=== PATIENT | male | born 1965 | race Caucasian/White ===

== ENCOUNTER 2024-07-24 16:45 | Emergency (ER) | payer SELFPAY ==
[2024-07-24 16:48] VITALS: BP 133/76; PULSE 64; TEMP 36.6; O2SAT 100; BMI 26.8
--- NOTE | 2024-07-24 17:18 | XRR_ITS ---
PROCEDURE INFORMATION: Exam: XR Abdomen Exam date and time: 07/24/2024 5:28 PM Age: 59 years old Clinical indication: Abdominal pain; Acute; Additional info: Diffuse abd pain x2 weeks TECHNIQUE: Imaging protocol: Radiologic exam of the abdomen. Views: Frontal supine view of the abdomen. 1 View. COMPARISON: No relevant prior studies available. FINDINGS: Gastrointestinal tract: Nonobstructive bowel gas pattern. Large colonic stool burden. Bones/joints: No acute osseous abnormality. XR/XR KUB portable [id number] IMPRESSION: 1. Nonobstructive bowel gas pattern. 2. Large colonic stool burden, which may be seen with constipation.
[2024-07-24 17:25] VITALS: BP 128/84; PULSE 58; O2SAT 100
--- NOTE | 2024-07-24 17:29 | ED_ITS ---
HPI - Abdominal Pain 2 General: Chief Complaint: Abdominal Pain Stated Complaint: dr campos, abd pain Time Seen by Provider: 07/24/24 17:06 Source: patient Mode of arrival: ambulatory Limitations: no limitations History of Present Illness: Patient is a 59-year-old male who presents the emergency department complaining of diffuse abdominal pain for the past 2 weeks. He states the pain started in the bilateral upper quadrants but has since moved to his entire abdomen as well as to his back/kidney region. He was seen by primary care but was referred over to the ED for labs and potential CT imaging. He states that the pain has been constant, and feels like a compacted feeling. He does note that he thought it was constipation early on but has taken stool softeners for this, this did not help the pain. Also notes his last normal bowel movement was this morning and was normal. He currently is rating his pain 7/10, he has not taken anything for the pain. He does have a history of appendectomy, still has his gallbladder. Specifically he notes that the pain is worsened when he eats anything, and is relieved with lying supine or seated up. Right now he is not reporting any associated nausea or vomiting, no diarrhea, no hematochezia or melena, no chest pain or shortness of breath, no dysuria or hematuria. He does note that occasionally he will get a burning sensation to the epigastric region that he thinks is heartburn but has not tried any medications. Currently at this time his vitals are within normal limits. MD elicited complaint: abdominal pain Onset (ago): week(s) (2) Pain Consistency: constant Location: Diffuse Severity: moderate Pain scale (0-10): 7 Quality: other ( Compacted feeling ) Radiation: back Exacerbating factors: eating Relieving factors: other (Lying supine or seated up) Associated Symptoms: Denies bloating, change in stool character, chills, constipation, diarrhea, dysuria, fever(s), hematochezia, hematuria, nausea and vomiting Related Data Allergies Allergy/AdvReac Type Severity Reaction Status Date / Time No Known Allergies Allergy Verified 07/24/24 16:55 Review of Systems 2 General: Reports: 10 or more systems reviewed and unremarkable except in HPI and below Const: Denies: fever(s), chills, change in appetite, change in weight or diaphoresis ENMT: Denies: throat pain or hoarseness Card: Denies: chest pain, palpitations or lightheadedness Resp: Denies: dyspnea, productive cough or wheezing GI: Reports: abdominal pain; Denies: nausea, vomiting, diarrhea, constipation, bloating, change in stool character or hematochezia : Denies: flank pain, difficulty urinating, dysuria, urinary frequency, urinary urgency or hematuria Musc: Reports: back pain; Denies: neck pain Skin/Breast: Denies: rash or new lesions Neuro: Denies: headache(s) or dizziness Physical Exam 2 Const: COMMON NORMALS: no acute distress, average body habitus, patient oriented x3, no limitations, healthy appearing, alert and well nourished G ENERAL APPEARANCE: cooperative, comfortable and anxious O RIENTATION/CONSCIOUSNESS: Yes awake HENMT: COMMON NORMALS: normocephalic, atraumatic, hearing grossly normal bilaterally, external ears normal, Normal external nose present, Normal nasal mucous membranes and turbinates present and moist oral mucous membranes HEAD & SCALP: normocephalic and atraumatic NOSE: Normal external nose present and Normal nasal mucous membranes and turbinates present EXTERNAL EAR: Yes external ears normal Eye: COMMON NORMALS: Equal, round and reactive pupils present, EOMs intact bilaterally, conjunctivae normal and normal visual marte by confrontation C ONJUNCTIVA: Yes conjunctivae normal PUPIL: Yes Equal, round and reactive pupils present Neck/C-Spine: COMMON NORMALS: full ROM, supple, no meningeal signs and no JVD Resp: COMMON NORMALS: normal respiratory effort, No retractions, No use of accessory muscles and clear to auscultation bilaterally AUSCULTATION: clear to auscultation bilaterally, no crackles, no rales, no rhonchi and no wheezes Cardio: COMMON NORMALS: no JVD, regular rate, regular rhythm, S1 normal heart sound present, S2 normal heart sound present, No gallops present (Cardio), No clicks present (Cardio), No murmurs present (Cardio), No rub (Cardio) and Peripheral pulses 2+ throughout RATE: regular rate RHYTHM: regular rhythm HEART SOUNDS: S1 normal heart sound present and S2 normal heart sound present PERIPHERAL PULSES: Peripheral pulses 2+ throughout GI: COMMON NORMALS: Normal to inspection, nondistended, normoactive bowel sounds present, Soft to palpation, No hepatosplenomegaly present and no masses AUSCULTATION: Yes normoactive bowel sounds PALPATION: Yes Soft to palpation, Yes Tenderness to palpation present (GI) (Diffuse abdominal tenderness to light palpation), No Guarding due to palpation present (GI), No Rigid due to palpation and Yes No hepatosplenomegaly present RECTAL EXAM: Yes deferred OTHER: Negative Rivas sign : COMMON NORMALS: Yes no CVA tenderness BLADDER/KIDNEY EXAM: Yes no CVA tenderness Back/Pelvis: COMMON NORMALS: no CVA tenderness Extremity: COMMON NORMALS: normal to inspection and full ROM Neuro: COMMON NORMALS: patient oriented x3, moves all extremities, no focal motor deficits and no sensory deficits noted SENSORIUM/ORIENTATION: Yes alert MENINGEAL SIGNS: Yes no meningeal signs Psych: COMMON NORMALS: mental status grossly normal, cooperative and speech normal SPEECH: Yes normal speech Skin: COMMON NORMALS: no rashes or lesions noted GENERAL SKIN EXAM: no rashes or lesions noted Course 2 Vital Signs: Vital signs: Vital Signs Temperature 97.9 F 07/24/24 16:48 Pulse Rate 73 07/24/24 19:30 Blood Pressure 139/92 07/24/24 19:30 Pulse Oximetry 95 07/24/24 19:30 Oxygen Delivery Me thod Room Air 07/24/24 19:30 MDM - Abdominal Pain Medical Decision Making This patient presented with abdominal pain for the past 2 weeks, was sent by PCP for lab work and imaging. He was diffusely tender on palpation. Vitals have been normal throughout ED stay. Initially lab work was obtained which all was negative, to include a normal urinalysis. KUB showed large stool burden, I suspect constipation as cause of his pain. When discussing this with the patient, he states he would rather be safe and get a CT now that he has an IV in as opposed to coming back when he gets worse. CT showed nonspecific enteritis, likely viral due to normal labs and clinical stability. Discussed conservative therapy to include treatment of his constipation, bowel rest, bland diet, and close observation and make sure that he is getting better. No need for antibiotics or further treatment/workup at this time, rechecked and he is stating he is feeling better and ready to go home. Discussed return precautions, he verbalized understanding. Lab Data 07/24/24 17:45 07/24/24 17:45 Labs/Radiology: Radiology Impressions KUB X-Ray 07/24/24 17:18 IMPRESSION: 1. Nonobstructive bowel gas pattern. 2. Large colonic stool burden, which may be seen with constipation. Abdomen/Pelvis CT 07/24/24 18:21 IMPRESSION: Multiple nondilated fluid-filled loops of small bowel, nonspecific findings but may be seen with enteritis. No small bowel obstruction. Laboratory Results WBC 9.45 10^3/uL (3.29-11.43) 07/24/24 17:45 RBC 4.52 10^6/uL (3.85-5.65) 07/24/24 17:45 Hgb 13.00 g/dL (11.27-16.99) 07/24/24 17:45 Hct 40.1 % (37-53) 07/24/24 17:45 MCV 88.7 fl (82-101) 07/24/24 17:45 MCH 28.8 pg (27-33) 07/24/24 17:45 MCHC 32.4 g/dL (30-55) 07/24/24 17:45 RDW 13.2 % (12.1-15.1) 07/24/24 17:45 Plt Count 241 10^3/cmm (157-399) 07/24/24 17:45 MPV 8.9 fL (7.4-10.4) 07/24/24 17:45 Neut % (Auto) 57.7 % 07/24/24 17:45 Lymph % (Auto) 30.7 % 07/24/24 17:45 [place] % (Auto) 9.4 % 07/24/24 17:45 Eos % (Auto) 1.7 % 07/24/24 17:45 Baso % (Auto) 0.3 % 07/24/24 17:45 Neut # (Auto) 5.45 10^3/uL (1.8-7.7) 07/24/24 17:45 Lymph # (Auto) 2.9 10^3/uL (0.8-4.8) 07/24/24 17:45 [place] # (Auto) 0.9 10^3/uL (0.2-0.9) 07/24/24 17:45 Eos # (Auto) 0.2 10^3/uL (0.0-0.8) 07/24/24 17:45 Baso # (Auto) 0.0 10^3/uL (0.0-0.1) 07/24/24 17:45 Nucleated RBC % (auto) 0 % 07/24/24 17:45 Nucleated RBCs # 0.0 /100WBC 07/24/24 17:45 Sodium 141 mmol/L (136-145) 07/24/24 17:45 Potassium 3.6 mmol/L (3.5-5.1) 07/24/24 17:45 Chloride 103 mmol/L (98-107) 07/24/24 17:45 Carbon Dioxide 26 mmol/L (22-29) 07/24/24 17:45 Anion Gap 15.6 (5-19) 07/24/24 17:45 BUN 14 mg/dL (6-20) 07/24/24 17:45 Creatinine 0.9 mg/dL (0.7-1.2) 07/24/24 17:45 GFR Calculation 87.0 mL/min (90-130) L 07/24/24 17:45 Glucose 84 mg/dL (65-115) 07/24/24 17:45 Calculated Osmolality 292 mOsm/kg (285-295) 07/24/24 17:45 Calcium 9.4 mg/dL (8.5-10.5) 07/24/24 17:45 Total Bilirubin 0.2 mg/dL (0.15-1.2) 07/24/24 17:45 AST 16 U/L (0-40) 07/24/24 17:45 ALT 13 U/L (0-41) 07/24/24 17:45 Alkaline Phosphatase 108 U/L (40-130) 07/24/24 17:45 Total Protein 7.1 g/dL (6.6-8.7) 07/24/24 17:45 Albumin 4.3 g/dL (3.5-5.2) 07/24/24 17:45 Globulin 2.8 g/dL (1.3-4.6) 07/24/24 17:45 Lipase 35 U/L (13-60) 07/24/24 17:45 Urine Color Yellow (Yellow) 07/24/24 17:24 Urine Appearance Clear (CLEAR) 07/24/24 17:24 Urine pH 6.5 (5-7) 07/24/24 17:24 Ur Specific [place] 1.024 (1.005-1.030) 07/24/24 17:24 Urine Protein Negative (Negative) 07/24/24 17:24 Urine Glucose (UA) Negative (Normal) 07/24/24 17:24 Urine Ketones Trace (Negative) 07/24/24 17:24 Urine Blood Negative (Negative) 07/24/24 17:24 Urine Nitrate Negative (Negative) 07/24/24 17:24 Urine Bilirubin Negative (Negative) 07/24/24 17:24 Urine Urobilinogen 1.0 mg/dL (Negative) 07/24/24 17:24 Ur Leukocyte Esterase Negative (Negative) 07/24/24 17:24 Urine RBC 0-2 /hpf (0-2) 07/24/24 17:24 Urine WBC 6-10 /hpf (0-5) 07/24/24 17:24 Ur Squamous Epith Cells 0-5 /hpf (0-5) 07/24/24 17:24 Amorphous Sediment Not Reportable 07/24/24 17:24 Urine Bacteria None seen /hpf (NONE) 07/24/24 17:24 Hyaline Casts 4.11 /lpf 07/24/24 17:24 All radiology interpretation(s) finalized by discharge Discharge Plan Discharge Patient Disposition: Home Clinical Impression: Gastroenteritis Constipation Qualifiers: Constipation type: unspecified constipation type Qualified Code(s): K59.00 - Constipation, unspecified Condition: Stable Discharge Orders: Discharge ED (Routine); Ordered 07/24/24 Ordered By: David Medeiros Referrals: Raj Cornelius MD [Primary Care Provider] - Patient Instructions: [place] Diet - Adult, Constipation (ED), Gastroenteritis (ED) Activity Restrictions/Additional Instructions: Bowel rest. Drink plenty of fluids. [place] diet. Take medications at home for your constipation, and take MiraLAX as maintenance therapy. High-fiber diet. Follow-up with primary care. Return with any new or worsening. Please see the attached patient instructions for further education. Print Language: Polish Coding Level of Care Code ED Gum Sprayer for Guanako Mistry
[2024-07-24 17:43] LABS: Bilirubin Urine Negative (Negative); Blood Urine Negative (Negative); Glucose Urine UA Negative (Normal); Ketones Urine Trace (Negative); Leukocyte Esterase Urine Negative (Negative); Nitrate Urine Negative (Negative); Protein Urine Negative (Negative); Specific Gravity, Urine 1.024 (1.005-1.030); Urine Appearance Clear (CLEAR); Urine Color Yellow (Yellow); pH Urine 6.5 (5-7)
[2024-07-24 17:48] LABS: Add Urine Microscopic? YES; Bacteria Urine None Seen /hpf; Hyaline Casts Urine 4.11 /lpf; RBC Urine 0-2 /hpf (0-2); Squamous Epithelial Cell Urine 0-5 /hpf (0-5)
[2024-07-24 17:52] VITALS: BP 126/75; PULSE 58; O2SAT 100
[2024-07-24 17:54] LABS: Basophils % 0.3 %; Eosinophils # 0.2 10^3/uL (0.0-0.8); Eosinophils % 1.7 %; Hematocrit 40.1 % (37-53); Lymphocytes # 2.9 10^3/uL (0.8-4.8); Lymphocytes % 30.7 %; Mean Corpuscular HGB Conc 32.4 g/dL (30-55); Mean Corpuscular Hemoglobin 28.8 pg (27-33); Mean Corpuscular Volume 88.7 fl (82-101); Mean Platelet Volume 8.9 fL (7.4-10.4); Monocytes # 0.9 10^3/uL (0.2-0.9); Monocytes % 9.4 %; Neutrophils # 5.45 10^3/uL (1.8-7.7); Neutrophils % 57.7 %; Nucleated Red Blood Cells % 0 %; Platelet Count 241 10^3/cmm (157-399); Red Blood Count 4.52 10^6/uL (3.85-5.65); Red Cell Distribution Width 13.2 % (12.1-15.1); White Blood Count 9.45 10^3/uL (3.29-11.43)
[2024-07-24 18:14] LABS: Alanine Aminotransferase 13 U/L (0-41); Albumin Level 4.3 g/dL (3.5-5.2); Alkaline Phosphatase 108 U/L (40-130); Anion Gap 15.6 (5-19); Aspartate Amino Transferase 16 U/L (0-40); Blood Urea Nitrogen 14 mg/dL (6-20); Calcium 9.4 mg/dL (8.5-10.5); Carbon Dioxide 26 mmol/L (22-29); Chloride 103 mmol/L (98-107); Creatinine Clr Calc Pharmacy 111.7431; Globulin 2.8 g/dL (1.3-4.6); Glucose 84 mg/dL (65-115); Lipase 35 U/L (13-60); Osmolality Calculated 292 mOsm/kg (285-295); Potassium 3.6 mmol/L (3.5-5.1); Sodium 141 mmol/L (136-145); Total Bilirubin 0.2 mg/dL (0.15-1.2); Total Protein 7.1 g/dL (6.6-8.7)
--- NOTE | 2024-07-24 18:21 | CTR_ITS ---
PROCEDURE INFORMATION: Exam: CT Abdomen And Pelvis With Contrast Exam date and time: 07/24/2024 7:39 PM Age: 59 years old Clinical indication: Abdominal pain; Generalized; Additional info: Diffuse abd pain x2 weeks TECHNIQUE: Imaging protocol: Computed tomography of the abdomen and pelvis with contrast. Radiation optimization: All CT scans at this facility use at least one of these dose optimization techniques: automated exposure control; mA and/or kV adjustment per patient size (includes targeted exams where dose is matched to clinical indication); or iterative reconstruction. Contrast material: OMNIPAQUE 350; Contrast volume: 100 ml; Contrast route: INTRAVENOUS (IV); COMPARISON: CR (ABDOMEN, ) 07/24/2024 5:28 PM RADIATION DOSE METRICS: Total DLP (mGy-cm): 618.03 FINDINGS: Lungs: Unremarkable. Liver: Normal. No mass. Gallbladder and biliary ducts: Normal. No calcified stones. No ductal dilation. Pancreas: Normal. No ductal dilation. Spleen: Punctate calcified granulomas within the spleen. Adrenal glands: Normal. No mass. Kidneys and ureters: Normal. No hydronephrosis. Stomach and bowel: Moderate colonic stool burden. Multiple nondilated fluid-filled loops of small bowel. Appendix: No evidence of appendicitis. Intraperitoneal space: Unremarkable. No free air. No significant fluid collection. Vasculature: Unremarkable. No abdominal aortic aneurysm. Lymph nodes: Unremarkable. No enlarged lymph nodes. Urinary bladder: Unremarkable as visualized. Reproductive: Unremarkable as visualized. Bones/joints: Unremarkable. No acute fracture. Soft tissues: Small fat containing bilateral inguinal hernias. CT/CT abdomen pelvis w con* [id number] IMPRESSION: Multiple nondilated fluid-filled loops of small bowel, nonspecific findings but may be seen with enteritis. No small bowel obstruction.
[2024-07-24 18:30] VITALS: BP 134/79; PULSE 60; O2SAT 98
[2024-07-24 19:30] VITALS: BP 139/92; PULSE 73; O2SAT 95
[2024-07-24] MEDS: iohexol 350 mg/mL 500 mL Btl (per mL) IV (19:41)
[2024-07-24] MEDS: lactulose oral liq 20 gm/30 mL UDC 30 GM PO (20:32)
[2024-07-24] MEDS: magnesium citrate Btl 296 mL PO (20:32)
[2024-07-24 20:38] VITALS: BP 137/91; PULSE 62; O2SAT 96
== END 2024-07-24 20:39 | disposition home or self-care (01) ==
PROVIDERS: Emergency Provider Physician Assistant; PCP Family Medicine
DX: K52.9 Noninfective gastroenteritis and colitis, unspecified (principal); K59.00 Constipation, unspecified
CPT/HCPCS: 36415; 74018; 74177; 80053; 81001; 83690; 85025; 99285; J9999